=== PATIENT | male | born 1950 | race Two or more races ===

== ENCOUNTER 2018-10-19 04:19 | Observation (INO) | payer OTHER ==
[~2018-10-19] VITALS: Ht 170.2 cm; Wt 97.5 kg
--- NOTE | 2018-10-19 04:29 | NUR ---
MIRTHA EUGENE AT BEDSIDE FOR EKG
--- NOTE | 2018-10-19 04:40 | NUR ---
PT PRESENTS TO ED WITH . C/O 07/08 SUBSTERNAL CHEST PAIN THAT RADIATES TO THE BACK. PT STATES HE HAS NEVER FELT THIS PAIN BEFORE. PT HAS HX OF HIGH CHOLESTEROL. PT SKIN WNL. PT SPEAKING IN CLEAR AND FULL SENTENCES. PT AXO X4. PT STATES THAT NOTHING MAKES THE PAIN WORSE OR BETTER. PT DENIES ANY SOB. PT CONNECTED TO FULL CM AND PULSE OX MONITORS. NAD AT THIS TIME. AWAITING MSE. MD GRAFF NOTIFIED OF PT LATEST BLOOD PRESSURE SEE VITALS.
--- NOTE | 2018-10-19 05:28 | NUR ---
PT BECAME NAUSEATED AND WAS DRY HEAVING. MD GRAFF MADE AWARE. 4MG ZOFRAN IVP VERBAL ORDER GIVEN ZOFRAN GIVEN PER VERBAL ORDER
--- NOTE | 2018-10-19 05:40 | NUR ---
MD GRAFF AT BEDSIDE PERFORMING CARDIAC ULTRASOUND
--- NOTE | 2018-10-19 05:40 | NUR ---
PT REPORTS PAIN ONLY 1/10 AFTER ADMINISTRATION OF 2/3 NITRO. PT REPORTS MILD "SORE" BACK PAIN
[2018-10-19 05:44] LABS: BASOPHIL % 0.3 % (0-2); PLATELET COUNT 232 x10^3mcL (130-400); RED CELL DISTRIBUTION WIDTH 14.2 % (11.5-14.5)
[2018-10-19 05:59] LABS: CALCIUM 8.9 mg/dL (8.5-10.1); CARBON DIOXIDE 26.3 mmol/L (21-32); CHLORIDE SERUM 101 mmol/L (98-107); GFR1 > 60 mL/min; GLUCOSE SERUM 131 mg/dL (74-106); POTASSIUM SERUM 4.2 mmol/L (3.5-5.1); SODIUM SERUM 138 mmol/L (136-145)
--- NOTE | 2018-10-19 06:01 | NUR ---
AT BEDSIDE. BLANKET PROVIDED. PT DENIES H/A AT THIS TIME. PT REPORT CHEST PRESSURE GONE. PT REPORTS MILD SORENESS TO BACK STILL AT 1
[2018-10-19 06:05] LABS: ALBUMIN 4.1 g/dL (3.4-5.0); ALKALINE PHOSPHATASE 93 U/L (46-116); ALT/SGPT 29 U/L (16-63); AST/SGOT 21 U/L (15-37); BILIRUBIN TOTAL 0.8 mg/dL (0.20-1.00); LIPASE 81 IU/L (73-393); TOTAL PROTEIN, SERUM 7.7 g/dL (6.4-8.2)
--- NOTE | 2018-10-19 06:17 | NUR ---
PT TAKEN TO RADIOLOGY
--- NOTE | 2018-10-19 07:10 | NUR ---
REPORT GIVEN TO JOAN ROQUE RN
--- NOTE | 2018-10-19 09:07 | NUR ---
REPORT GIVEN TO MYA WALTER RN
--- NOTE | 2018-10-19 09:07 | NUR ---
RECIEVED REPORT FROM VALENTINE GONZALES. PT WILL BE COMING UP IN ABOUT 15 MIN.
[2018-10-19] MEDS ORDERED: LIPITOR40 MG PO (09:11)
--- NOTE | 2018-10-19 09:20 | NUR ---
RECIEVED PT FROM ER VIA SHAAN ACCOMPANIED BY VALENTINE GONZALES. A/O X4 WITH NO DISTRESS NOTED. ASSESSMENT AND ADMISSION STARTED. SAFETY PRECAUTIONS IN PLACE, CALL LIGHT WITHIN REACH, WILL MONITOR.
[2018-10-19 09:36] VITALS: BP 168/78
--- NOTE | 2018-10-19 10:24 | NUR ---
PT C/O 3/10CHEST PRESSURE AND BACK PAIN, MEDICATED WITH MORPHINE PER EMAR, WILL REASSESS.
--- NOTE | 2018-10-19 13:42 | NUR ---
PT BACK FROM STRESS TEST, C/O 09/07 PAIN, MEDICATED WITH TORADOL BY VALENTINE MCNEILL. WILL REASSESS.
--- NOTE | 2018-10-19 13:48 | NUR ---
PT C/O CONSTANT CHEST PRESSURE 7/10; REPOSITIONED FOR COMFORT, GIVEN KETOROLAC IVP FOR PAIN; FAMILY MEMBERS AT BEDSIDE; TECH JUST CAME IN TO DO HEART ECHO. WILL ENDORSE TO VALENTINE MOTA.
[2018-10-19 13:58] VITALS: BP 172/83
--- NOTE | 2018-10-19 16:28 | NUR ---
PT BACK FROM STRESS TEST, C/O 09/07 PAIN, MEDICATED WITH TORADOL BY VALENTINE MCNEILL. WILL REASSESS.
--- NOTE | 2018-10-19 16:31 | NUR ---
PT REPORTS PAIN HAS DECREASED AND "FEELS MUCH BETTER". SAFETY PREC IN PLACE, CALL LIGHT WITHIN REACH, WILL CONT TO MONITOR.
[2018-10-19 17:18] VITALS: BP 127/71
--- NOTE | 2018-10-19 18:28 | NUR ---
PT STABLE AT THIS TIME AND STILL REPORTS NO PAIN, DISTRESS, OR SOB. ALL CARES TOLERATED WELL, VS WNL. A/O X4 WITH NO IYER OR DIZZINESS. TELE#8 CONNECTED TO PT. DENIES CP OR PRESSURE. LAC IV INTACT AND PATENT WITH NO REDNESS OR INFLAMMATION. FAMILY AT BEDSIDE, CALL LIGHT WITHIN REACH, SAFETY PRECAUTIONS IN PLACE, WILL ENDORSE CARE TO NIGHT NURSE.
--- NOTE | 2018-10-19 18:53 | NUR ---
RECEIVED CALL FROM DR ST WHO ASKED ABOUT PATIENT CONDITIONS AND LAST BP- 127/71. PATIENT DENIES CHEST PAIN OT OTHER DISCOMFORT. PER DR ST OK TO CT PATIENT HOME TONIGHT. PER DR GLASGOW, PATIENT TO GO TO HIS OFFICE IN AM FOR PRECRIPTION. DR RENDON CALLED AND INFORMED ABOUT DR ST RECOMMENDATION. PER DR RENDON OK TO CT PATIENT HOME. ATTENDING NURSE NAKUL AKINS.
[2018-10-19 20:17] VITALS: BP 127/71
--- NOTE | 2018-10-19 20:35 | NUR ---
DISCHARGED HOME IN STABLE CONDITION ACCOMPANIED BY AND ANTONI OVALLE VIA WHEELCHAIR. TO FOLLOW UP WITH PRIMARY .
[2018-10-19 20:56] VITALS: BP 114/766
== END 2018-10-19 20:25 | disposition home or self-care (01) | DRG 313 ==
LOC: ED 04:19 → DU 08:42
PROVIDERS: Emergency Medicine; ADMIT Internal Medicine
DX: R07.89 Other chest pain (principal); E78.5 Hyperlipidemia, unspecified; Z87.891 Personal history of nicotine dependence
CPT/HCPCS: A9500; G0378; J1885; J2270; J2405; J2785; Q0092; Q9967

== ENCOUNTER 2018-10-20 18:43 | Inpatient (IN) | payer OTHER ==
[~2018-10-20] VITALS: Ht 170.2 cm; Wt 97.5 kg
[~2018-10-20 18:43] MED LIST: LIPITOR40 MG PO
[2018-10-20 18:54] VITALS: Ht 170.2 cm; Wt 97.5 kg
--- NOTE | 2018-10-20 18:54 | NUR ---
EKG IN PROGRESS.
--- NOTE | 2018-10-20 19:00 | NUR ---
PT OFFERED WC TO ED ROOM. PT REFUSED, PT AND SPOUSE INSTRUCTED TO INFORM [employer] OPERATIONS SUPERVISOR IF CONDITION CHANGED OR WORSENED, VERBALIZED UNDERSTANDING. NO ACUTE DISTRESS NOTED.
[2018-10-20 19:49] LABS: BASOPHIL % 0.1 % (0-2); PLATELET COUNT 229 x10^3mcL (130-400); RED CELL DISTRIBUTION WIDTH 14.4 % (11.5-14.5)
[2018-10-20 20:00] LABS: CALCIUM 8.9 mg/dL (8.5-10.1); CARBON DIOXIDE 24.4 mmol/L (21-32); CHLORIDE SERUM 98 mmol/L (98-107); GFR1 > 60 mL/min; GLUCOSE SERUM 143 mg/dL (74-106); POTASSIUM SERUM 3.4 mmol/L (3.5-5.1); SODIUM SERUM 136 mmol/L (136-145)
[2018-10-20 20:04] LABS: ALBUMIN 3.9 g/dL (3.4-5.0); ALKALINE PHOSPHATASE 86 U/L (46-116); ALT/SGPT 22 U/L (16-63); AST/SGOT 18 U/L (15-37); BILIRUBIN TOTAL 1.5 mg/dL (0.20-1.00)
--- NOTE | 2018-10-20 20:15 | NUR ---
PT. IN ED WITH EPIGASTRIC PAIN AND CHEST PAIN. REPORTS HE WAS IN D/C FROM HOSPITAL LAST NIGHT FOR SAME SYMPTOMS AND PAIN CAME BACK THIS AFTERNOON AFTER EATING [employer] FOOD. PT. REPORTS PAIN IS 3/10 TO EPIGASTRIC REGION, NON RADIATING, C/O NAUSEA, AND FEELING "A LITTLE DIZZY". PT. AAOX4, TALKING AND RESPONDING APPROPRIATELY, BREATHING E/U. PLACED ON FULL CONTAINER FINISHER. CALL LIGHT IN REACH. WILL CONTINUE TO MONITOR
--- NOTE | 2018-10-20 20:30 | NUR ---
ULTRASOUND AT BEDSIDE
--- NOTE | 2018-10-20 20:48 | NUR ---
DR. YODER AT BEDSIDE TO DISCUSS PLAN OF CARE WITH PATIENT. INFORMED HE WILL CANCEL THE ULTRSOUND AND ORDER CT ANGIO INSTEAD. PT. VERBALIZED UNDERSTANDING AND AGREES WITH PLAN
--- NOTE | 2018-10-20 20:50 | NUR ---
PT. LAYING ON GURNEY IN POSITION OF COMFORT. REPORTS PAIN IS NOW 1/10 AT THIS TIME. AT BEDSIDE. CALL LIGHT IN REACH. WILL CONTINUE TO MONITOR
--- NOTE | 2018-10-20 21:24 | NUR ---
PT. MEDICATED WITH A GI COCKTAIL. INSTRUCTED NOT TO DRINK OR EAT FOR AROX 30-45MIN. VERBALIZED UNDERSTANDING
--- NOTE | 2018-10-20 21:43 | NUR ---
PT. REPORTS 0/10 PAIN AFTER GI COCKTAIL. REPORTS "THE BURNING FEELING IS GONE". CALL LIGHT IN REACH. WILL CONTINUE TO MONITOR
--- NOTE | 2018-10-20 22:48 | NUR ---
PT. LAYING ON GURNEY IN POSITION OF COMFORT. DENIES PAIN AT THIS TIME. CALL LIGHT IN REACH. WILL CONTINUE TO MONITOR.
--- NOTE | 2018-10-21 00:22 | NUR ---
REPORT GIVEN TO SALEEM IN [facility] FOR FURTHER CARE OF PATIENT. ALL QUESTIONS AND CONCERNS ADDRESSED.
--- NOTE | 2018-10-21 01:00 | NUR ---
PT. TRANSFERED BY SHAAN BY EMT JABIER. PT. AAOX4, TALKING AND RESPONDING APPROPRIATELY, BREATHING E/U. NAD. STABLE AT TIME OF TRANSFER. FAMILY AT BEDSIDE.
--- NOTE | 2018-10-21 01:25 | NUR ---
PAGED DR SUH FOR ORDERS, CALLED BACK ADMISSION ORDERS PLACED, MD WILL RECONCILE HOME MEDS IN AM.
[2018-10-21 01:33] VITALS: BP 143/72
--- NOTE | 2018-10-21 01:41 | NUR ---
RECEIVED PT FROM ER, PT ADMIT FOR ABD PAIN, PT IS A/O X4, VERBAL RESPONSIVE, ABLE TO TELL WHAT HE NEED. LUNG SOUND CLEAR BILATEARL, NO COUGH, NO SOB, PT DENY ANY CHEST PAIN, BOWEL SOUND PRESENT ALL 4 QUADRANTS, NO DISTENTION, NO TENDER. PT DENY ANY ABD PAIN OR N/V AT THIS MOMENT. IV AT RIGHT AC, NO INFILTRATION. ALL ADLS ASSIST, ALL NEED MET, CALL LIGHT IN REACH, WILL CONTINUE TO MONITOR.
--- NOTE | 2018-10-21 01:44 | NUR ---
DR SUH AWARE OF LAB RESULTS WITH ELEVATED WBC AND LOW K+ LEVEL 3.4, PT IS AFEBRILE, V/S STABLE, NNO AT THIS TIME.
--- NOTE | 2018-10-21 03:23 | NUR ---
PT ASLEEP NO S/SX OF PAIN OR DISCOMFORTS, NO NAUSEA OR VOMITING, NO DISTRESS ON RA, VISUAL CHECKED AT INTERVALS, CALL LIGHT AT REACH, REMAINED NPO.
--- NOTE | 2018-10-21 05:19 | NUR ---
PT AWAKE ASKING FOR PAIN MEDS, C/O ABDL PAIN 4/10 PER ASSESSMENT, DENIES NAUSEA NOR VOMITING, TYLENOL 650 MG PO GIVEN, REMAINED NPO, WILL MONITOR.
[2018-10-21 06:42] VITALS: BP 156/85
--- NOTE | 2018-10-21 07:10 | NUR ---
RECIEVED PT FROM NIGHT NURSE. PT IS LAYING DOWN IN BED WITH HOB UP RESTING. RESPIRATIONS EVEN AND UNLABORED ON ROOM AIR. PT LOOKS TO BE IN NO ACUTE DISTRESS AND DENIES ANY PAIN AT THIS TIME. IV SITE PATENT WITH NO SIGNS OF ERYTHEMA OR SWELLING WITH IV FLUIDS INFUSING. CALL LIGHT WITHIN REACH. BED IN LOWEST POSITION, CALL LIGHT WITHIN REACH. WILL CONTINUE TO MONITOR.
[2018-10-21 07:18] LABS: BASOPHIL % 0.2 % (0-2); PLATELET COUNT 215 x10^3mcL (130-400); RED CELL DISTRIBUTION WIDTH 14.4 % (11.5-14.5)
[2018-10-21 07:20] LABS: ALBUMIN 3.5 g/dL (3.4-5.0); ALKALINE PHOSPHATASE 95 U/L (46-116); ALT/SGPT 24 U/L (16-63); AST/SGOT 18 U/L (15-37); BILIRUBIN TOTAL 1.85 mg/dL (0.20-1.00); CALCIUM 8.9 mg/dL (8.5-10.1); CARBON DIOXIDE 27.1 mmol/L (21-32); CHLORIDE SERUM 100 mmol/L (98-107); GFR1 > 60 mL/min; GLUCOSE SERUM 123 mg/dL (74-106); LIPASE 61 IU/L (73-393); POTASSIUM SERUM 3.5 mmol/L (3.5-5.1); SODIUM SERUM 138 mmol/L (136-145); TOTAL PROTEIN, SERUM 7.8 g/dL (6.4-8.2)
[2018-10-21 08:14] VITALS: BP 135/79
--- NOTE | 2018-10-21 13:00 | NUR ---
PT IS LAYING DOWN IN BED WITH HOB UP RESTING. PT LOOKS TO BE IN NO ACUTE DISTRESS AT THIS TIME. RESPIRATIONS EVEN AND UNLABORED ON ROOM AIR, IV SITE PATENT WITH NO SIGNS OF ERYTHEMA OR SWELLING WITH IV FLUIDS INFUSING. FAMILY MEMBER AT BEDSIDE. CALL LIGHT WITHIN REACH. WILL CONTINUE TO MONITOR.
--- NOTE | 2018-10-21 15:30 | NUR ---
PT RETURNED FROM [facility] AND IS SITTING IN BEDSIDE CHAIR. PT LOOKS TO BE IN NO ACUTE DISTRESS AT THIS TIME. PT IS COMPLAINING OF 3/10 PAIN TO THE RUQ OF THE ABD. PT IS REQUESTING TO HAVE TYLENOL TO HELP WITH THE PAIN. HELPED PT BACK TO BED. FAMILY MEMBERS AT BEDSIDE. WILL MEDICATE ACCORDING TO EMAR.
[2018-10-21 16:24] VITALS: BP 147/86
--- NOTE | 2018-10-21 18:54 | NUR ---
PT IS LAYING DOWN IN BED WITH HOB UP RESTING. PT LOOKS TO BE IN NO ACUTE DISTRESS AND STATES PAIN IS TOLERABLE AT THIS TIME. IV SITE PATENT WITH NO SIGNS OF ERYTHEMA OR SWELLING WITH IV FLUIDS INFUSING. RESPIRATIONS EVEN AND UNLABORED ON ROM AIR. FAMILY MEMBER AT BEDSIDE. CALL LIGHT WITHIN REACH. WILL ENDORSE TO ONCOMING SHIFT.
[2018-10-21 19:10] VITALS: BP 156/85
--- NOTE | 2018-10-21 20:24 | NUR ---
PATIENT RECEIVED AWAKE, ALERT, ORIENTED X4 IN BED. RESPIRATION EVEN AND UNLABORED, ON ROOM AIR. COMPLAINED OF RUQ ABDOMINAL PAIN, 5/10. MEDICATED WITH DILAUDID 1 MG IVP ORDERED. VOIDING FREELY WITHOUT DIFFICULTY, USES BRP INDEPENDENTLY. AMBULATORY. SKIN DRY AND INTACT. ONGOING 0.9% NS AT 80 CC/HR INFUSING WELL AT THE RIGHT ANTECUBITAL AREA. ON NPO. FOR LAP HUMBERTO IN AM. WILL CONTINUE TO MONITOR.
--- NOTE | 2018-10-22 | NUR ---
PATIENT RESTING IN BED. RESPIRATION EVEN AND UNLABORED, ON ROOM AIR. STILL COMPLAINING OF RUQ ABDOMINAL PAIN ON/OFF. IV SITE NO SIGN OF INFILTRATION. ON NPO. FOR SURGERY IN AM. ASSISTED WITH NEEDS. WILL CONTINUE TO MONITOR.
--- NOTE | 2018-10-22 00:05 | NUR ---
PATIENT COMPLAINED OF SHARP, RUQ ABDOMINAL PAIN, 6/10. MEDICATED WITH DILAUDID 1 MG IVP ORDERED. WILL CONTINUE TO MONITOR.
--- NOTE | 2018-10-22 04:24 | NUR ---
PATIENT COMPLAINED OF SHARP, RUQ ABDOMINAL PAIN, 3. MEDICATED WITH TYLENOL 650 MG PO ORDERED. WILL CONTINUE TO MONITOR.
--- NOTE | 2018-10-22 05:25 | NUR ---
PATIENT COMPLAINED SHARP, RUQ ABDOMINAL PAIN, 5/10. MEDICATED WITH DILAUDID 1MG IVP ORDERED. WILL CONTINUE TO MONITOR.
[2018-10-22 05:43] VITALS: BP 160/93
--- NOTE | 2018-10-22 06:52 | NUR ---
PATIENT RESTING IN BED. RESPIRATION EVEN AND UNLABORED, ON ROOM AIR. NO COMPLAIN OF DISCOMFORT/PAIN AT THIS TIME. IV SITE NO SIGN OF INFILTRATION. ON NPO, FOR ERNIE PAUL THIS AM. CHLORHEXIDINE BATH DONE. ASSISTED WITH NEEDS. SAFETY OBSERVED. PLACED BED IN THE LOWEST POSITION. PLACED CALL LIGHT WITHIN REACH AT ALL TIMES.
--- NOTE | 2018-10-22 07:10 | NUR ---
RECEIVED PT FROM NIGHT NURSE. PT IS LAYING DOWN IN BED WITH HOB UP RESTING WITH EYES CLOSED. PT LOOKS TO BE IN NO ACUTE DISTRESS AT THIS TIME. RESPIRATIONS EVEN AND UNLABORED ON ROOM AIR. IV SITE PATENT WITH NO SIGNS OF ERYTHEMA OR SWELLING WITH IV FLUIDS INFUSING. BED IN LOWEST POSITION, CALL LIGHT WITHIN REACH. WILL CONTINUE TO MONITOR.
[2018-10-22 08:26] VITALS: BP 129/74
--- NOTE | 2018-10-22 13:15 | NUR ---
PT WAITING FOR SURGERY SCHEDULED FOR 82910/22/18. CALLED [employer] MANAGER WHO REPORTED SURGERY HAS BEEN CANCELED PER DR. RIVERA. PT AND FAMILY AWARE. PAGED DR. RIVERA, AWAITING CALL BACK.
--- NOTE | 2018-10-22 16:06 | NUR ---
PT IS LAYING DOWN IN BED WITH HOB UP. PT STATED HE EAT VERY LITTLE BUT HAS BEEN DRINKING ALOT OF WATER. PT DENIES ANY NAUSEA OR PAIN AT THIS TIME. FAMILY MEMBERS AT BEDSIDE. WILL CONTINUE TO MONITOR.
[2018-10-22 16:55] VITALS: BP 147/78
--- NOTE | 2018-10-22 18:52 | NUR ---
PT IS LAYING DOWN IN BED WITH HOB UP RESTING. PT LOOKS TO BE IN NO ACUTE DISTRESS AT THIS TIME AND STATES PAIN IS TOLERABLE AT THIS TIME AT A 1/10. IV SITE PATENT WITH NO SIGNS OF ERYTHEMA OR SWELLING WITH IV FLUIDS INFUSING. PT STATES DOES NOT HAVE MUCH OF AN APPETITE BUT IS DRINKING ALOT OF WATER. FAMILY MEMBER AT BEDSIDE. CALL LIGHT WITHIN REACH. WILL ENDORSE TO ONCOMING SHIFT.
--- NOTE | 2018-10-22 19:20 | NUR ---
RECIEVED PT IN NO ACUTE DISTRESS. AOX4. MED SURG. BREATHING E/U ON RA. BOWEL SOUNDS ACTIVE X 4. DENIES ABD PAIN. NPO AFTER MIDNIGHT FOR PROCEDURE TOMORROW AM. IV TO RAC, PATENT, NO REDNESS/SWELLING. BED IN LOWEST POSITION, 2 SIDE RAILS UP, CALL LIGHT IN REACH. INSTRUCTED TO CALL FOR ASSISTANCE.
[2018-10-22 19:28] VITALS: BP 136/74
--- NOTE | 2018-10-23 01:55 | NUR ---
RESTING IN BED WITH EYES CLOSED. BREATHING E/U. NO ACUTE DISTRESS NOTED. WILL CONTINUE TO MONITOR.
[2018-10-23 05:29] VITALS: BP 152/71
[2018-10-23 06:39] LABS: BASOPHIL % 0.1 % (0-2); PLATELET COUNT 229 x10^3mcL (130-400)
--- NOTE | 2018-10-23 06:47 | NUR ---
NO ACUTE DISTRESS NOTED. NO ACUTE CHANGES. CHG WIPES GIVEN TO PT AT THIS TIME. NPO SINCE 0000 FOR PROCEDURE. WILL ENDORSE TO ONCOMING RN.
[2018-10-23 07:01] LABS: ALKALINE PHOSPHATASE 149 U/L (46-116); ALT/SGPT 41 U/L (16-63); AST/SGOT 51 U/L (15-37); BILIRUBIN TOTAL 1.7 mg/dL (0.20-1.00); CALCIUM 8.2 mg/dL (8.5-10.1); CARBON DIOXIDE 26.5 mmol/L (21-32); CHLORIDE SERUM 99 mmol/L (98-107); CREATININE SERUM 0.9 mg/dL (0.7-1.3); GFR1 > 60 mL/min; GLUCOSE SERUM 127 mg/dL (74-106); POTASSIUM SERUM 3.3 mmol/L (3.5-5.1); SODIUM SERUM 137 mmol/L (136-145); TOTAL PROTEIN, SERUM 6.6 g/dL (6.4-8.2)
[2018-10-23 07:06] LABS: ALBUMIN 2.6 g/dL (3.4-5.0)
--- NOTE | 2018-10-23 07:10 | NUR ---
RECEIVED PT FROM NIGHT NURSE. PT IS LAYING DOWN IN BED WITH HOB UP RESTING WITH EYES CLOSED. PT LOOKS TO BE IN NO ACUTE DISTRESS AT THIS TIME. IV SITE PATENT WITH NO SIGNS OF ERYTHEMA OR SWELLING WITH IV FLUIDS INFUSING. RESPIRATIONS EVEN AND UNLABORED ON ROOM AIR. BED IN LOWEST POSITION, CALL LIGHT WITHIN REACH. WILL CONTINUE TO MONITOR.
[2018-10-23 07:22] LABS: RED CELL DISTRIBUTION WIDTH 15.1 % (11.5-14.5)
[2018-10-23 08:11] VITALS: BP 131/73
--- NOTE | 2018-10-23 10:45 | NUR ---
PT TAKEN DOWN TO OR ACCOMPANIED BY NURSE. PT IS H/L.
[2018-10-23 13:32] VITALS: BP 121/72
--- NOTE | 2018-10-23 13:32 | NUR ---
PT RETURNED FROM OR. CURRENT VITALS ARE HR: 67, O2 98% ON 2L NC, RR: 16, BP: 121/72, TEMP: 98.1 TEMPORTAL. PT LOOKS TO BE IN NO ACUTE DISTRESS AT THIS TIME AND DENIES ANY PAIN. IV SITE PATENT WITH NO SIGNS OF ERYTHEMA OR SWELLING WITH IV FLUIDS INFUSING. 4 INCISIONAL SITE TO ABD, 3 WITH SUTURES AND BANDAID AND ONE WITH AURELIA DRAIN WITH SEROSANGENOUS DRAINAGE PRESENT. DRESSINGS CDI. FAMILY MEMBER AT BEDSIDE. WILL CONTINUE TO MONITOR.
--- NOTE | 2018-10-23 15:15 | NUR ---
PT REQUESTING TO HAVE JELLO. PT ABLE TO SWALLOW WITHOUT DIFFICULTY. PT LOOKS TO BE IN NO ACUTE DISTRESS AT THIS TIME. FAMILY MEMBERS AT BEDSIDE. WILL CONTINUE TO MONITOR.
[2018-10-23 16:18] VITALS: BP 132/69
--- NOTE | 2018-10-23 17:00 | NUR ---
PT IS LAYING DOWN IN BED RESTING WITH EYES CLOSED. PT LOOKS TO BE IN NO ACUTE DISTRESS AT THIS TIME. RESPIRATIONS EVEN AND UNLABORED ON 2L NC. FAMILY MEMBER AT BEDSIDE. WILL CONTINUE TO MONITOR.
--- NOTE | 2018-10-23 18:48 | NUR ---
PT WALKING AROUND UNIT WITH . PT LOOKS TO BE IN NO ACUTE DISTRESS AT THIS TIME AND STATES PAIN IS TOLERABLE. PT DENIES ANY NAUSEA AFTER EATING DINNER. PT DENIES FEELING ANY DIZZINESS. RESPIRATIONS EVEN AND UNLABORED ON ROOM AIR AT 94%. WILL ENDORSE TO ONCOMING SHIFT.
--- NOTE | 2018-10-23 20:00 | NUR ---
RECEIVED PT IN BED, RESTING QUIETLY. A/O X4. DENIES HEADACHE/DIZZINESS. RESP. EVEN AND UNLABORED. ON ROOM AIR, NO ACUTE DISTRESS NOTED. AFEBRILE AND VITAL SIGNS STABLE. ABD.INCISIONS WITH BANDAIDS/SUTURES, DRY AND INTACT. AURELIA DRAIN INTACT AND DRAINING BLOODY OUTPUT. DOUGLAS. PO. WELL. NO N/V NOTED. NO COMPLAINTS NOTED AT THIS TIME. IVF, NS AT 80ML/HR, INTACT AND INFUSING VIA RAC, SITE CLEAR. ASSISTED WITH HS CARE. CALL LIGHT WITHIN REACH. WILL CONTINUE TO MONITOR.
[2018-10-23 21:03] VITALS: BP 101/68
--- NOTE | 2018-10-23 22:15 | NUR ---
COMPLAINED OF HEADACHE, 4/10, REQUESTING TYLENOL, MEDICATED ORDERED WITH RELIEF.WILL CONTINUE TO MONITOR.
--- NOTE | 2018-10-24 00:30 | NUR ---
RESTING QUIETLY,WATCHING TV. NO COMPLAINTS NOTED AT THIS TIME. CALL LIGHT WITHIN REACH. WILL CONTINUE TO MONITOR.
--- NOTE | 2018-10-24 01:20 | NUR ---
RESTING QUIETLY IN BED WITH EYES CLOSED, APPEARS ASLEEP, EASILY AROUSABLE. RESP. EVEN AND UNLABORED. NO ACUTE DISTRESS NOTED. WILL CONTINUE TO MONITOR.
--- NOTE | 2018-10-24 04:33 | NUR ---
COMPLAINED OF MILD ABD. PAIN ,2/10, REQUESTING TYLENOL. MEDICATED ORDERED. WILL CONTINUE TO MONITOR.
--- NOTE | 2018-10-24 06:01 | NUR ---
AFEBRILE AND VITAL SIGNS STABLE. RESP. EVEN AND UNLABORED. NO ACUTE DISTRESS NOTED. SLEPT WELL, NO COMPLAINTS NOTED AT THIS TIME. ABD. INCISION SITES WITH BANDAIDS, DRY AND INTACT. AURELIA DRAIN INTACT AND DRAINING SERO-SANG. DRAINAGE. 20ML OUTPUT NOTED. DUE MEDS GIVEN ORDERED, DOUGLAS. WELL. AMBULATED IN THE HALLWAY X2, DOUGLAS . WELL. CALL LIGHT WITHIN REACH. WILL CONTINUE TO MONITOR.
[2018-10-24 06:24] VITALS: BP 141/80
[2018-10-24 07:12] LABS: BASOPHIL % 0.1 % (0-2); PLATELET COUNT 261 x10^3mcL (130-400); RED CELL DISTRIBUTION WIDTH 15.1 % (11.5-14.5)
[2018-10-24 07:15] LABS: ALKALINE PHOSPHATASE 148 U/L (46-116); ALT/SGPT 57 U/L (16-63); AST/SGOT 72 U/L (15-37); BILIRUBIN TOTAL 1.3 mg/dL (0.20-1.00); CALCIUM 8.3 mg/dL (8.5-10.1); CARBON DIOXIDE 26.7 mmol/L (21-32); CHLORIDE SERUM 101 mmol/L (98-107); CREATININE SERUM 0.8 mg/dL (0.7-1.3); GFR1 > 60 mL/min; GLUCOSE SERUM 148 mg/dL (74-106); MAGNESIUM 2.1 mg/dL (1.8-2.4); SODIUM SERUM 138 mmol/L (136-145); TOTAL PROTEIN, SERUM 6.5 g/dL (6.4-8.2)
[2018-10-24 07:23] LABS: ALBUMIN 2.4 g/dL (3.4-5.0)
[2018-10-24 07:50] VITALS: BP 119/63
[2018-10-24 12:53] VITALS: BP 119/63
--- NOTE | 2018-10-24 13:20 | NUR ---
DR RIVERA WAS AT BEDSIDE, OK TO DC AURELIA DRAIN AND DISCHARGE PATIENT. AURELIA REMOVED, PATIENT TOLERATED WELL. PICTURES TAKEN OF LAP SITES, STAPLED AND NO REDNESS/SWELLING NOTED. BANDAIDS REPLACED. DISCHARGE INSTRUCTIONS AND PRESCRIPTION GIVEN, PATIENT AND AT BEDSIDE VERBALIZED UNDERSTANDING. IV DC'D CATH INTACT. ALL QUESTIONS/CONCERNS ADDRESSED.
== END 2018-10-24 13:27 | disposition home or self-care (01) | DRG 419 ==
LOC: ED 18:43 → MU 23:42
PROVIDERS: Internal Medicine Pulmonary Disease; Surgery; ADMIT Internal Medicine
PROC: BF10YZZ Fluoroscopy of Bile Ducts using Other Contrast (ICD-10-PCS; 2018-10-23)
PROC: 0FT44ZZ Resection of Gallbladder, Percutaneous Endoscopic Approach (ICD-10-PCS; principal; 2018-10-23 11:00)
DX: K81.0 Acute cholecystitis (principal); R12 Heartburn; K76.0 Fatty (change of) liver, not elsewhere classified; K42.9 Umbilical hernia without obstruction or gangrene; E78.5 Hyperlipidemia, unspecified; E66.9 Obesity, unspecified; Z68.33 Body mass index [BMI] 33.0-33.9, adult; Z87.891 Personal history of nicotine dependence
CPT/HCPCS: 78226; A9537; C1887; G0378; J0330; J0694; J1170; J1644; J1885; J1956; J2405; J2704; J2710; J3010; J3480; J3490; J7030; J7120; Q9967